=== PATIENT | female | born 1980 ===

== ENCOUNTER 2017-08-19 07:34 | Observation (INO) | payer MEDICAID ==
[2017-08-19 07:34] VITALS: BMI 30.7
[2017-08-19] MEDS ORDERED: Sodium Chloride 0.9% 1,000 ML IV ONE (08:00)
[2017-08-19] MEDS ORDERED: Sodium Chloride 0.9% 1,000 ML ONE (08:06)
--- NOTE | 2017-08-19 08:13 | C.PDOC ---
History Of Present Illness 37 yo female w/o significant PMHx come in for evaluation of mild lower abdominal pain associated with vaginal bleeding for past 2 days. Pt reports, " I probably miscarriage". Pt admits, LNMP 06/16/17, ,A1. Pt sts, "was standing at work when to sit down, developed dizziness and fainted this AM". AT present time, pt reports only mild lower abdominal pain. Otherwise, pt denies fever, chills, headache, vertigo, recent illness, sore throat, denies CP, SOB, dyspnea, diaphoresis, palpitation, N/V, back pain, UTI sx. Pt denies BCP use, denies lower legs pain, no risk factors for PE. Ambulate to ED for evaluation, not in nay apparent distress. Time Seen by Provider: 08/19/17 07:47 Chief Complaint (Nursing): Abdominal Pain History Per: Patient Past Medical History Reviewed: Historical Data, Nursing Documentation, Vital Signs Vital Signs: Last Vital Signs Temp 98 F 08/19/17 15:11 Pulse 87 08/19/17 15:11 Resp 20 08/19/17 15:11 BP 95/55 L 08/19/17 15:11 Pulse Ox 99 08/19/17 15:11 - Medical History PMH: Asthma Denies: Chronic Kidney Disease Family History: States: Unknown Family Hx - Social History Hx Tobacco Use: Yes Hx Alcohol Use: Yes Hx Substance Use: No - Immunization History Hx Tetanus Toxoid Vaccination: No Hx Influenza Vaccination: No Hx Pneumococcal Vaccination: No Review Of Systems Except As Marked, All Systems Reviewed And Found Negative. Constitutional: Negative for: Fever, Chills Eyes: Negative for: Vision Change ENT: Negative for: Throat Pain Cardiovascular: Negative for: Chest Pain, Palpitations, Edema, Light Headedness Respiratory: Negative for: Cough, Shortness of Breath, Wheezing Gastrointestinal: Positive for: Abdominal Pain. Negative for: Nausea, Vomiting Genitourinary: Positive for: Vaginal Bleeding Musculoskeletal: Negative for: Neck Pain, Back Pain Skin: Negative for: Rash Neurological: Positive for: Altered Mental Status. Negative for: Weakness, Numbness, Headache, Dizziness Physical Exam - Physical Exam Appears: Well, Non-toxic, No Acute Distress Skin: Normal Color, Warm, Dry, No Rash Head: Normacephalic Eye(s): bilateral: PERRL Nose: No Flaring, No Discharge Oral Mucosa: Moist Throat: No Erythema, No Exudate, No Drooling Neck: Supple Cardiovascular: Rhythm Regular, No Murmur, No JVD, Other ((-) carotid bruits B/L ) Respiratory: No Decreased Breath Sounds, No Accessory Muscle Use, No Stridor, No Wheezing Gastrointestinal/Abdominal: Soft, Tenderness (mild suprapubia), No Distention, No Guarding, No Rebound Back: No CVA Tenderness Extremity: Normal ROM, No Pedal Edema, No Calf Tenderness (B/L), No Swelling Neurological/Psych: Oriented x3, Normal Speech, Normal Motor, Normal Sensation, Normal Reflexes ED Course And Treatment - Laboratory Results Result Diagrams: 08/19/17 08:20 08/19/17 08:23 Lab Interpretation: Abnormal Urine POC: Positive ECG: Interpreted By Me, Viewed By Me ECG Rhythm: Sinus Rhythm Interpretation Of ECG: SR@83/min, NAD, RSR, T wave inversion in V2, no acute ST- T changes. O2 Sat by Pulse Oximetry: 100 Pulse Ox Interpretation: Normal - Radiology CXR: Interpreted by Me, Viewed By Me CXR Interpretation: Yes: No Acute Disease - CT Scan/US Transvaginal US Other Rad Studies (CT/US): Radiology Report Reviewed CT/US Interpretation: cession No. : [id number]. Patient Name / ID : CAITLIN MARTINEZ / [id number]. Exam Date : 08/19/2017 09:18:40 ( Approved ). Study Comment : Sex / Age : F / 37Y. Creator : Nick Card MD. Dictator : Nick Card MD. Acid Correction Hand : Machine Adjuster Leader : Nick Card MD. Approver2 : Report Date : 08/19/2017 09:41:43. My Comment : . HISTORY: , vaginal bleeding. COMPARISON: None available. TECHNIQUE: Transabdominal and transvaginal. Transabdominal examination grossly limited due to lack of distended urinary bladder. FINDINGS: UTERUS: Measures 10.9 x 5.8 x 8.1 cm. Posterior intramural uterine fibroid, 1.6 x 1.3 x 1.7 cm. ENDOMETRIUM: Measures 10 mm in diameter. No intrauterine gestation identified. CERVIX: No cervical abnormality identified. RIGHT OVARY: Measures 2.8 x 2.1 x 2.8 cm. No solid mass. Normal flow. LEFT OVARY: Measures 2.6 x 2.1 x 2.7 cm. No solid mass. Normal flow. FREE FLUID: No significant free fluid noted. OTHER FINDINGS: None. IMPRESSION: No intrauterine gestation identified. Please note that in the presence of significantly elevated beta HCG , the possibility of ectopic gestation must be considered. Small posterior intramural uterine fibroid. Progress Note: Blood work review and appears abnormal, acute anemia due to acute blood loss. US results review and c/w complete , no evidence of ectopic. Beta quant 100. Blood type A negative. Case review with ED attending , admission with blood transfusion recommend. results review with pt. Agrees with plan. case discussed with Med-on-call and admission arranged. Disposition - Disposition Disposition: HOSPITALIZED Disposition Time: 10:16 Condition: STABLE - Clinical Impression Clinical Impression: Syncope, Anemia, Complete
[2017-08-19 08:33] LABS: BASO # 0.1 K/uL (0.0-0.2); BASO % 0.5 % (0.0-2.0); EOS # 0.6 K/uL (0.0-0.7); EOS % 5.8 % (0.0-4.0); LYMPH # 2.1 K/uL (1.0-4.3); LYMPH % 21.3 % (20.0-40.0); MEAN CORPUSCULAR HEMOGLOBIN 32.2 pg (27.0-31.0); MEAN CORPUSCULAR HGB CONC 33.9 g/dL (33.0-37.0); MEAN PLATELET VOLUME 8.4 fL (7.2-11.7); MONO # 0.4 K/uL (0.0-0.8); MONO % 3.9 % (0.0-10.0); NRBC % 0.1 % (0.0-2.0); RED CELL DISTRIBUTION WIDTH 13.6 % (11.5-14.5); WHITE BLOOD COUNT 9.8 K/uL (4.8-10.8)
[2017-08-19 08:44] LABS: MEAN CELL VOLUME 95.2 fL (81.0-99.0)
[2017-08-19 08:47] LABS: CHLORIDE 102 mmol/L (98-107)
[2017-08-19 08:48] LABS: RBC URINE 42091 /hpf (0-3); URINE BACTERIA RARE (<OCC); URINE BILIRUBIN NEGATIVE (NEGATIVE); URINE BLOOD 3+ (NEGATIVE); URINE GLUCOSE (UA) 1+ mg/dL (Normal); URINE KETONE 1+ mg/dL (NEGATIVE); URINE LEUKOCYTE ESTERASE NEG Leu/uL (Negative); URINE PROTEIN 2+ mg/dL (NEGATIVE); URINE UROBILINOGEN NORMAL mg/dL (0.2-1.0)
[2017-08-19 08:48] LABS: POTASSIUM 3.5 mmol/L (3.6-5.2); SODIUM 134 mmol/L (132-148)
[2017-08-19 08:49] LABS: URINE COLOR RED (YELLOW); WBC URINE 2 /hpf (0-5)
[2017-08-19 08:50] LABS: ALB/GLOB RATIO 1.5 (1.0-2.1); ALKALINE PHOSPHATASE 34 U/L (38-126); ALT/SGPT 25 U/L (9-52); AST/SGOT 29 U/L (14-36); BILIRUBIN,TOTAL 0.3 mg/dL (0.2-1.3); BLOOD UREA NITROGEN 9 mg/dL (7-17); CARBON DIOXIDE 24 mmol/L (22-30); GFR AFRICAN-AMERICAN > 60; GLUCOSE,RANDOM 87 mg/dL (65-105); TOTAL PROTEIN 5.7 g/dL (6.3-8.3)
--- NOTE | 2017-08-19 09:08 | RAD ---
HISTORY: syncope COMPARISON: 10/04/2016 TECHNIQUE: Chest PA and lateral FINDINGS: LUNGS: Mild venous congestion. Bibasilar breast and nipple shadows. PLEURA: No significant pleural effusion identified. No pneumothorax apparent. CARDIOVASCULAR: Normal. OSSEOUS STRUCTURES: No significant abnormalities. VISUALIZED UPPER ABDOMEN: Normal. OTHER FINDINGS: None. IMPRESSION: No active disease.
--- NOTE | 2017-08-19 09:43 | US ---
HISTORY: , vaginal bleeding COMPARISON: None available. TECHNIQUE: Transabdominal and transvaginal Transabdominal examination grossly limited due to lack of distended urinary bladder. FINDINGS: UTERUS: Measures 10.9 x 5.8 x 8.1 cm. Posterior intramural uterine fibroid, 1.6 x 1.3 x 1.7 cm. ENDOMETRIUM: Measures 10 mm in diameter. No intrauterine gestation identified. CERVIX: No cervical abnormality identified. RIGHT OVARY: Measures 2.8 x 2.1 x 2.8 cm. No solid mass. Normal flow. LEFT OVARY: Measures 2.6 x 2.1 x 2.7 cm. No solid mass. Normal flow. FREE FLUID: No significant free fluid noted. OTHER FINDINGS: None. IMPRESSION: No intrauterine gestation identified. Please note that in the presence of significantly elevated beta HCG, the possibility of ectopic gestation must be considered. Small posterior intramural uterine fibroid.
[2017-08-19] MEDS ORDERED: Potassium Chloride 20 mEq ER Tab PO ONE (12:15)
[2017-08-19] MEDS: Potassium Chloride 20 mEq ER Tab PO SCH (16:14)
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
[2017-08-19 22:35] LABS: BASO % 0.5 % (0.0-2.0); EOS # 0.6 K/uL (0.0-0.7); EOS % 6.4 % (0.0-4.0); HEMATOCRIT 20.5 % (34.0-47.0); LYMPH # 2.8 K/uL (1.0-4.3); LYMPH % 31.9 % (20.0-40.0); MEAN CELL VOLUME 89.8 fL (81.0-99.0); MEAN CORPUSCULAR HEMOGLOBIN 31.3 pg (27.0-31.0); MEAN CORPUSCULAR HGB CONC 34.8 g/dL (33.0-37.0); MEAN PLATELET VOLUME 8.2 fL (7.2-11.7); MONO # 0.4 K/uL (0.0-0.8); MONO % 4.5 % (0.0-10.0); NRBC % 0.1 % (0.0-2.0); RED CELL DISTRIBUTION WIDTH 15.7 % (11.5-14.5); WHITE BLOOD COUNT 8.8 K/uL (4.8-10.8)
[2017-08-19 22:44] LABS: CHLORIDE 106 mmol/L (98-107)
[2017-08-19 22:45] LABS: POTASSIUM 3.7 mmol/L (3.6-5.2); SODIUM 136 mmol/L (132-148)
[2017-08-19 22:47] LABS: ALKALINE PHOSPHATASE 36 U/L (38-126); ALT/SGPT 25 U/L (9-52); AST/SGOT 22 U/L (14-36); BILIRUBIN,TOTAL 0.6 mg/dL (0.2-1.3); BLOOD UREA NITROGEN 10 mg/dL (7-17); GFR AFRICAN-AMERICAN > 60; GLUCOSE,RANDOM 91 mg/dL (65-105); TOTAL PROTEIN 6.2 g/dL (6.3-8.3)
[2017-08-19 22:48] LABS: CALCIUM 8.4 mg/dl (8.6-10.4)
[2017-08-19 23:07] LABS: CARBON DIOXIDE 23 mmol/L (22-30)
[2017-08-20 06:18] VITALS: RESP 20
[2017-08-20 07:51] LABS: BASO % 0.6 % (0.0-2.0); EOS # 0.5 K/uL (0.0-0.7); EOS % 7.2 % (0.0-4.0); HEMATOCRIT 21.9 % (34.0-47.0); LYMPH # 2.3 K/uL (1.0-4.3); LYMPH % 30.9 % (20.0-40.0); MEAN CELL VOLUME 89.8 fL (81.0-99.0); MEAN CORPUSCULAR HEMOGLOBIN 31.5 pg (27.0-31.0); MEAN CORPUSCULAR HGB CONC 35.1 g/dL (33.0-37.0); MEAN PLATELET VOLUME 8.7 fL (7.2-11.7); MONO # 0.4 K/uL (0.0-0.8); MONO % 4.6 % (0.0-10.0); NRBC % 0.5 % (0.0-2.0); RED CELL DISTRIBUTION WIDTH 15.9 % (11.5-14.5); WHITE BLOOD COUNT 7.5 K/uL (4.8-10.8)
[2017-08-20 08:04] LABS: CHLORIDE 105 mmol/L (98-107); POTASSIUM 3.8 mmol/L (3.6-5.2); SODIUM 134 mmol/L (132-148)
[2017-08-20 08:07] LABS: BLOOD UREA NITROGEN 9 mg/dL (7-17); CARBON DIOXIDE 21 mmol/L (22-30); GFR AFRICAN-AMERICAN > 60
[2017-08-20 08:08] LABS: CALCIUM 8.4 mg/dl (8.6-10.4); GLUCOSE,RANDOM 71 mg/dL (65-105)
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
[2017-08-20] MEDS: Potassium Chloride 20 mEq ER Tab PO SCH (10:17)
--- NOTE | 2017-08-20 15:42 | CP.PCM.PN ---
Subjective - Date & Time of Evaluation Date of Evaluation: 08/20/17 Time of Evaluation: 15:38 - Subjective Subjective: PT SEEN AND EXAMINED TODAY, AAOXD, DENIES ANY ABDOMINAL PAIN, N/V/ VAGINAL BLEEDING. Objective - Vital Signs/Intake and Output Vital Signs (last 24 hours): Temp Pulse Resp BP Pulse Ox 97.4 F L 75 20 105/53 L 97 08/20/17 08:20 08/20/17 08:20 08/20/17 08:20 08/20/17 08:20 08/20/17 08:20 Intake and Output: 08/20/17 08/20/17 06:59 18:59 Intake Total 1250 Balance 1250 - Medications Medications: Current Medications Acetaminophen (Tylenol 325mg Tab) 650 mg PO Q6 PRN PRN Reason: Pain, severe (8-10) Last Admin: 08/19/17 23:55 Dose: 650 mg Potassium Chloride (K-Dur 20 Meq Er Tab) 20 meq PO DAILY LAMONTE Last Admin: 08/20/17 10:17 Dose: 20 meq - Labs Labs: 08/20/17 07:05 08/20/17 07:05 Assessment and Plan - Assessment and Plan (Free Text) Plan: 37 Y/O FEMALE ADMITTED FOR VAGINAL BLEEDING, ACUTE ANEMIA LMP: 06/16/17, AT 9 WEEKS AND [address] WANG AND DR LEGER REPEAT BETA HCG TRENDING DOWN, HGB: 7.[address] WANG MADE AWARE OF HGB:7.7 TODAY 1 PRBC TRANSFUSION ORDERED PER DR WANG AWAITING FOR FERRITIN LEVEL, REPEAT CBC TOMORROW
--- NOTE | 2017-08-20 18:48 | CP.PCM.PN ---
Subjective - Date & Time of Evaluation Date of Evaluation: 08/20/17 Time of Evaluation: 12:40 - Subjective Subjective: clinically same Objective - Vital Signs/Intake and Output Vital Signs (last 24 hours): Temp Pulse Resp BP Pulse Ox 98.2 F 81 20 105/70 98 08/20/17 15:11 08/20/17 15:11 08/20/17 15:11 08/20/17 15:11 08/20/17 15:11 Intake and Output: 08/20/17 08/20/17 06:59 18:59 Intake Total 1250 Balance 1250 - Medications Medications: Current Medications Acetaminophen (Tylenol 325mg Tab) 650 mg PO Q6 PRN PRN Reason: Pain, severe (8-10) Last Admin: 08/19/17 23:55 Dose: 650 mg Potassium Chloride (K-Dur 20 Meq Er Tab) 20 meq PO DAILY LAMONTE Last Admin: 08/20/17 10:17 Dose: 20 meq - Labs Labs: 08/20/17 07:05 08/20/17 07:05 - Constitutional Appears: Well - Head Exam Head Exam: ATRAUMATIC, NORMAL INSPECTION, NORMOCEPHALIC - Eye Exam Eye Exam: EOMI, Normal appearance, PERRL Pupil Exam: NORMAL ACCOMODATION, PERRL - ENT Exam ENT Exam: Mucous Membranes Moist, Normal Exam - Neck Exam Neck Exam: Full ROM, Normal Inspection. absent: Lymphadenopathy - Respiratory Exam Respiratory Exam: Decreased Breath Sounds - Cardiovascular Exam Cardiovascular Exam: REGULAR RHYTHM, +S1, +S2 - GI/Abdominal Exam GI & Abdominal Exam: Soft, Diminished Bowel Sounds - Rectal Exam Rectal Exam: Deferred
--- NOTE | 2017-08-20 19:50 | CP.PCM.PN ---
Subjective - Date & Time of Evaluation Date of Evaluation: 08/20/17 Time of Evaluation: 19:00 - Subjective Subjective: Feeling better Objective - Vital Signs/Intake and Output Vital Signs (last 24 hours): Temp Pulse Resp BP Pulse Ox 98.6 F 86 20 118/76 98 08/20/17 19:16 08/20/17 19:16 08/20/17 19:16 08/20/17 19:16 08/20/17 15:11 Intake and Output: 08/20/17 08/21/17 18:59 06:59 Intake Total 0 Balance 0 - Medications Medications: Current Medications Acetaminophen (Tylenol 325mg Tab) 650 mg PO Q6 PRN PRN Reason: Pain, severe (8-10) Last Admin: 08/19/17 23:55 Dose: 650 mg Potassium Chloride (K-Dur 20 Meq Er Tab) 20 meq PO DAILY LAMONTE Last Admin: 08/20/17 10:17 Dose: 20 meq - Labs Labs: 08/20/17 07:05 08/20/17 07:05 - Head Exam Head Exam: ATRAUMATIC - Eye Exam Eye Exam: Normal appearance - ENT Exam ENT Exam: Mucous Membranes Dry - Respiratory Exam Respiratory Exam: NORMAL BREATHING PATTERN - Cardiovascular Exam Cardiovascular Exam: +S1, +S2 - GI/Abdominal Exam GI & Abdominal Exam: Normal Bowel Sounds - Extremities Exam Extremities Exam: Normal Inspection Assessment and Plan (1) Anemia Assessment & Plan: vaginal bleeding; 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
[2017-08-21] MEDS: Potassium Chloride 20 mEq ER Tab PO SCH (09:20)
--- NOTE | 2017-08-21 10:59 | CP.PCM.PN ---
Subjective - Date & Time of Evaluation Date of Evaluation: 08/21/17 Time of Evaluation: 07:30 - Subjective Subjective: PGY3 Medicine Note - Dr. Celestina Reyez's service: Patient seen and examined at bedside this AM. Patient reports slight pelvic cramping and slight vaginal bleeding that is much improved. She reports feeling tired from taking a Benadryl last night. Patient denies fever, chills, chest pain, SOB, palpitations. Objective - Vital Signs/Intake and Output Vital Signs (last 24 hours): Temp Pulse Resp BP Pulse Ox 98.2 F 76 20 114/69 98 08/21/17 08:00 08/21/17 08:00 08/21/17 08:00 08/21/17 08:00 08/21/17 08:00 Intake and Output: 08/21/17 08/21/17 06:59 18:59 Intake Total 825 Balance 825 - Medications Medications: Current Medications Acetaminophen (Tylenol 325mg Tab) 650 mg PO Q6 PRN PRN Reason: Pain, severe (8-10) Last Admin: 08/19/17 23:55 Dose: 650 mg Potassium Chloride (K-Dur 20 Meq Er Tab) 20 meq PO DAILY LAMONTE Last Admin: 08/21/17 09:20 Dose: 20 meq - Labs Labs: 08/20/17 07:05 08/20/17 07:05 - Constitutional Appears: Non-toxic, No Acute Distress - Head Exam Head Exam: NORMAL INSPECTION - Eye Exam Eye Exam: EOMI - ENT Exam ENT Exam: Mucous Membranes Moist - Respiratory Exam Respiratory Exam: Clear to Ausculation Bilateral, NORMAL BREATHING PATTERN. absent: Rales, Rhonchi, Wheezes - Cardiovascular Exam Cardiovascular Exam: REGULAR RHYTHM, +S1, +S2. absent: Gallop, Rubs, Murmur - GI/Abdominal Exam GI & Abdominal Exam: Soft, Tenderness (pelvic), Normal Bowel Sounds - Extremities Exam Extremities Exam: Normal Capillary Refill. absent: Pedal Edema - Neurological Exam Neurological Exam: Alert, Awake, Oriented x3 - Psychiatric Exam Psychiatric exam: Normal Affect, Normal Mood Assessment and Plan - Assessment and Plan (Free Text) Assessment: Anemia Hematology consult - Dr. 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 Tejeda - help appreciated beta-HCG decreasing appropriately TVUS shows no intrauterine gestation No gynecological intervention needed Patient should follow up outpatient for yearly check up Prophylaxis SCDs Protonix 40mg PO daily All medical management per Dr. Celestina Reyez
[2017-08-21 11:30] LABS: BASO % 0.4 % (0.0-2.0); EOS # 0.7 K/uL (0.0-0.7); HEMATOCRIT 29.7 % (34.0-47.0); LYMPH # 1.9 K/uL (1.0-4.3); MEAN CELL VOLUME 90.3 fL (81.0-99.0); MEAN CORPUSCULAR HEMOGLOBIN 31.3 pg (27.0-31.0); MEAN CORPUSCULAR HGB CONC 34.6 g/dL (33.0-37.0); MEAN PLATELET VOLUME 8.6 fL (7.2-11.7); MONO # 0.4 K/uL (0.0-0.8); NRBC % 0.2 % (0.0-2.0); RED CELL DISTRIBUTION WIDTH 14.9 % (11.5-14.5); WHITE BLOOD COUNT 9.3 K/uL (4.8-10.8)
[2017-08-21 12:12] LABS: CHLORIDE 101 mmol/L (98-107); SODIUM 134 mmol/L (132-148)
[2017-08-21 12:13] LABS: POTASSIUM 3.9 mmol/L (3.6-5.2)
[2017-08-21 12:15] LABS: ALB/GLOB RATIO 1.1 (1.0-2.1); ALKALINE PHOSPHATASE 40 U/L (38-126); ALT/SGPT 31 U/L (9-52); AST/SGOT 29 U/L (14-36); BILIRUBIN,TOTAL 0.4 mg/dL (0.2-1.3); BLOOD UREA NITROGEN 12 mg/dL (7-17); CARBON DIOXIDE 21 mmol/L (22-30); GFR AFRICAN-AMERICAN > 60; GLUCOSE,RANDOM 67 mg/dL (65-105); TOTAL PROTEIN 7.6 g/dL (6.3-8.3)
[2017-08-21 13:20] LABS: FOLATE 18.7 ng/mL
[2017-08-21 16:15] VITALS: PULSE 77
[2017-08-21 17:03] VITALS: BP 137/86; TEMP 98.4; O2SAT 95
--- NOTE | 2017-08-21 20:18 | CP.PCM.PN ---
Subjective - Date & Time of Evaluation Date of Evaluation: 08/21/17 Time of Evaluation: 14:00 - Subjective Subjective: clinically same Objective - Vital Signs/Intake and Output Vital Signs (last 24 hours): Temp Pulse Resp BP Pulse Ox 98.4 F 77 20 137/86 95 08/21/17 15:00 08/21/17 15:30 08/21/17 15:00 08/21/17 15:00 08/21/17 15:00 Intake and Output: 08/21/17 08/22/17 18:59 06:59 Intake Total 320 Balance 320 - Labs Labs: 08/21/17 11:19 08/21/17 11:19
[2017-08-22 03:32] LABS: HEMATOCRIT 29.5 % (35.0-45.0); RDW 15.7 % (11.0-15.0)
[2017-08-22] MEDS ORDERED: Pantoprazole 40 mg EC Tab PO SCH (10:00)
[2017-08-22 15:02] LABS: HEMOGLOBIN F <1.0 Percent (<2.0)
== END 2017-08-21 17:00 | disposition home or self-care (01) ==
LOC: C.ER 07:34 → C.9E 10:18 → C.6T 10:56
PROVIDERS: ADMIT Internal Medicine Nephrology; ATTEND Internal Medicine Nephrology
DX: O03.9 Complete or unspecified spontaneous abortion without complication (principal); D64.9 Anemia, unspecified; Z3A.09 9 weeks gestation of pregnancy
CPT/HCPCS: 36415; 36430; 71020; 76830; 80048; 80053; 81001; 82607; 82728; 82746; 83021; 84484; 84702; 84703; 85014; 85018; 85025; 85041; 85044; 86850; 86900; 86920; 99285; G0378; J3420; J7040; P9051

== ENCOUNTER 2018-05-26 14:21 | Emergency (ER) | payer MEDICAID ==
[2018-05-26 14:21] VITALS: BMI 30.7
--- NOTE | 2018-05-26 16:04 | RAD ---
Date of service: 05/26/2018 HISTORY: Chest pain COMPARISON: Chest radiograph dated 08/19/2017. TECHNIQUE: Chest PA and lateral FINDINGS: LUNGS: No active pulmonary disease. PLEURA: No significant pleural effusion identified. No pneumothorax apparent. CARDIOVASCULAR: Normal. OSSEOUS STRUCTURES: No significant abnormalities. VISUALIZED UPPER ABDOMEN: Normal. OTHER FINDINGS: None. IMPRESSION: No active disease.
[2018-05-26 16:18] LABS: BASO % 0.3 % (0.0-2.0); EOS # 0.6 K/uL (0.0-0.7); EOS % 5.7 % (0.0-4.0); HEMOGLOBIN 13.3 g/dL (11.0-16.0); LYMPH % 19.3 % (20.0-40.0); MEAN CORPUSCULAR HEMOGLOBIN 31.7 pg (27.0-31.0); MEAN CORPUSCULAR HGB CONC 34.3 g/dL (33.0-37.0); MEAN PLATELET VOLUME 8.2 fL (7.2-11.7); MONO # 0.4 K/uL (0.0-0.8); MONO % 3.7 % (0.0-10.0); NEUT # 7.2 K/uL (1.8-7.0); NRBC % 0.2 % (0.0-2.0); RBC 4.2 Mil/uL (3.80-5.20); RED CELL DISTRIBUTION WIDTH 12.9 % (11.5-14.5); WHITE BLOOD COUNT 10.1 K/uL (4.8-10.8)
[2018-05-26 16:21] LABS: MEAN CELL VOLUME 92.5 fL (81.0-99.0)
[2018-05-26 16:44] LABS: BARBITURATES, UR NEGATIVE (NEGATIVE); BENZODIAZEPINES, UR NEGATIVE (NEGATIVE); OPIATES, UR NEGATIVE (NEGATIVE); PHENCYCLIDINE, UR NEGATIVE (NEGATIVE)
[2018-05-26 16:53] LABS: CALCIUM 9.6 mg/dl (8.6-10.4); GFR AFRICAN-AMERICAN > 60; GFR NON-AFRICAN AMERICAN > 60
[2018-05-26 17:02] LABS: B-TYPE NATRIURETIC PEPTIDE 55.5 pg/mL (0-450)
[2018-05-26 17:09] LABS: ALB/GLOB RATIO 1.2 (1.0-2.1); ALT/SGPT 30 U/L (9-52); AST/SGOT 38 U/L (14-36); BLOOD UREA NITROGEN 10 mg/dL (7-17)
[2018-05-26 18:06] LABS: D DIMER < 200 ng/mlDDU (0-243); INR 1.1; PARTIAL THROMBOPLASTIN TIME 30 SECONDS (21-34); PROTHROMBIN TIME 11.9 SECONDS (9.7-12.2)
--- NOTE | 2018-05-26 18:15 | C.PDOC ---
Time Seen by Provider: 05/26/18 15:27 Chief Complaint (Nursing): Chest Pain History Per: Patient Onset/Duration Of Symptoms: Days (1) Current Symptoms Are (Timing): Still Present Severity: Moderate Quality: "Pain" Modifying Factors: Other Indicated Below Alleviating Factors: None Additional History Per: Prior Records Past Medical History Reviewed: Historical Data, Nursing Documentation, Vital Signs Vital Signs: Last Vital Signs Temp 98.3 F 05/26/18 18:20 Pulse 64 05/26/18 18:20 Resp 18 05/26/18 18:20 BP 130/80 05/26/18 18:20 Pulse Ox 96 05/26/18 18:22 - Medical History PMH: Asthma, Pulmonary Embolism (3 months after giving ) Family History: States: Unknown Family Hx - Social History Hx Tobacco Use: Yes Hx Alcohol Use: Yes Hx Substance Use: No - Immunization History Hx Tetanus Toxoid Vaccination: No Hx Influenza Vaccination: No Hx Pneumococcal Vaccination: No Review Of Systems Except As Marked, All Systems Reviewed And Found Negative. Constitutional: Negative for: Fever, Weakness Cardiovascular: Positive for: Chest Pain Respiratory: Negative for: Hemoptysis Gastrointestinal: Negative for: Abdominal Pain Musculoskeletal: Negative for: Neck Pain, Leg Pain Neurological: Negative for: Weakness, Numbness Physical Exam - Physical Exam Appears: Non-toxic, No Acute Distress Skin: Normal Color, Warm, Dry, No Rash Head: Atraumatic, Normacephalic Eye(s): bilateral: PERRL, EOMI Neck: Normal ROM, Supple Chest: Symmetrical Cardiovascular: Rhythm Regular Respiratory: Normal Breath Sounds, No Accessory Muscle Use Gastrointestinal/Abdominal: Soft, No Tenderness Extremity: Normal ROM, No Pedal Edema, No Calf Tenderness Neurological/Psych: Oriented x3, Normal Motor, Normal Sensation ED Course And Treatment - Laboratory Results Result Diagrams: 05/26/18 16:10 05/26/18 16:10 Interpretation Of Abnormal: Positive for Cocaine Urine POC: Negative ECG: Interpreted By Me, Viewed By Me ECG Rhythm: Sinus Rhythm, Nonspecific Changes ECG Interpretation: No Acute Changes Rate From EC O2 Sat by Pulse Oximetry: 96 Pulse Ox Interpretation: Normal - Radiology CXR: Viewed By Me, Read By Radiologist CXR Interpretation: Yes: No Acute Disease Progress Note: I want to keep pt for observation in order to rule out VT due to the cocaine, however pt is refusing to stay. Pt denies cocaine use. I explained to her that she may still be suffering a heart attack and may if she goes home, but she still insists on leaving AMA. Against Medical Advice - AMA Patient Left Against Medical Advice: The patient declines admission to the hospital and wishes to leave the Emergency Department. This action is against my medical advice. This decision was made with informed refusal. The patient was told that admission to the hospital is necessary. Explanation of the reasons why were discussed. The risks of leaving were explained to the patient and include, but are not limited to, worsening of known or currently unknown conditions, permanent disability and from undiagnosed or untreated conditions. The patient has the capacity to make this informed decision and understands my explanation of the current medical problem and risks of leaving. The patient voluntarily accepts these risks and signed an AMA form documenting our conversation. The patient was given the opportunity to ask questions and reconsider. The patient was encouraged to return to the Emergency Department at any time for further care. Disposition Counseled Patient/Family Regarding: Studies Performed, Diagnosis, Need For Followup, Smoking Cessation - Disposition Referrals: Shin Boudreaux Jr., MD [Medical Doctor] - Disposition: AGAINST MEDICAL ADVICE Disposition Time: 18:21 Condition: GUARDED Additional Instructions: Avoid cocaine. Follow up with your doctor as soon as possible. Return to the ER if you change your mind, develop worsening of symptoms or if you have any other concerns. Instructions: Leaving Against Medical Advice, Chest Pain (DC) Forms: [employer] (Czech) - Clinical Impression Clinical Impression: Chest pain, Left against medical advice
[2018-05-26 18:21] VITALS: BP 130/80; PULSE 64; RESP 18; TEMP 98.3; O2SAT 96
--- NOTE | 2018-05-27 14:18 | CARD ---
APPROVED REPORT Date of service: 05/26/2018 EKG Measurement Heart [id number] <Conclusion> Normal sinus rhythm Possible Left atrial enlargement Borderline ECG
== END 2018-05-26 18:37 | disposition left against medical advice (07) ==
LOC: C.ER 14:21
DX: R07.9 Chest pain, unspecified (principal); Z86.711 Personal history of pulmonary embolism; F17.210 Nicotine dependence, cigarettes, uncomplicated